=== PATIENT | female | born 1965 | race Caucasian/White ===

== ENCOUNTER → 2019-09-22 | Outpatient (CLI) | payer OTHER ==
--- NOTE | 2019-09-25 17:55 | RAD ---
DATE: 09/22/2019 EXAM: DIGITAL SCREEN BILAT W/CAD HISTORY: Routine screening COMPARISON: Prior exams are from more than 10 years ago and are not available. This study was interpreted with the benefit of Computerized Aided Detection (CAD). Breast Density: SCATTERED The breast parenchyma shows scattered fibroglandular densities. Breast parenchyma level B. FINDINGS: Asymmetry involving the left upper breast posteriorly is present approximately 6.6 cm from the nipple. Asymmetry involving the right central MLO view is also present. No suspicious calcifications or distortion. IMPRESSION: Indeterminate asymmetries BI-RADS CATEGORY: 0 INCOMPLETE: NEEDS ADDITIONAL IMAGING EVALUATION AND/OR PRIOR MAMMOGRAMS FOR COMPARISON. RECOMMENDED FOLLOW-UP: ADD ADDITIONAL IMAGING. Spot compression imaging of the right and left breast at the upper posterior aspect recommended. Ultrasound may be needed bilaterally. PQRS compliance statement: Patient information was entered into a reminder system with a target due date for the next mammogram. Mammography is a sensitive method for finding small breast cancers, but it does not detect them all and is not a substitute for careful clinical examination. A negative mammogram does not negate a clinically suspicious finding and should not result in delay in biopsying a clinically suspicious abnormality. "Our facility is accredited by the [employer] Mammography Program."
== END | disposition home or self-care (01) ==
LOC: MAMMO 15:21
PROVIDERS: ATTEND Physician Assistant
DX: Z12.31 Encounter for screening mammogram for malignant neoplasm of breast (principal)
CPT/HCPCS: 77067

== ENCOUNTER → 2019-10-10 | Outpatient (CLI) | payer OTHER ==
--- NOTE | 2019-10-10 17:40 | RAD ---
Examination: 1. Bilateral digital diagnostic mammogram 2. Bilateral Limited breast ultrasound. INDICATION: Screening recall from [facility] for bilateral breast asymmetries. COMPARISON: Bilateral screening mammogram of September 22, 2019. TECHNIQUE: CC and MLO views of both breasts were obtained with 3-D technique and full-field ML views were obtained with 2-D technique. Thereafter, targeted ultrasound of both breasts in the upper outer quadrants was performed spanning the 9 to 12:00 position on the right and the 10:30 to 3:00 position on the left. FINDINGS: Bilateral mammogram: Heterogeneously dense breast parenchyma. In the right breast, with the 3-D imaging performed at this visit, an asymmetry in the lateral middle third right breast was observed with questionable associated architectural distortion (image 27 of 50 on the CC tomographic series). More centrally in the area of screening recall, no persistent mammographic abnormality was appreciated. In the left breast, the 3-D tomographic images suggested a possible asymmetry in the lateral posterior left breast (image 30 of 52 on the CC tomographic series) that likely correlates with the asymmetry recalled from screening, at the approximate 2:00 position 7 cm from the nipple. Targeted ultrasound of the right breast showed an ovoid hypoechoic mass with posterior acoustic enhancement at the 9:30 o'clock position 8 cm from the nipple measuring 7 x 3 mm with thin internal septations. No suspicious sonographic findings were observed. This likely correlates with the mammographic finding pursued for additional imaging and is currently favored to represent a probable benign cluster of cysts. The questioned distortion could reflect prominent Vidal's ligaments near the edge of the patient's fibroglandular envelope. Six-month follow-up right diagnostic mammogram recommended for this finding. Targeted ultrasound of the left breast revealed a round hypoechoic solid mass with somewhat indistinct margins at the left 2:00 position 8 cm from the nipple. It is 3.5 mm in diameter. It is mildly suspicious (BI-RADS 4A). Ultrasound-guided core needle biopsy is recommended. Nodularity in the upper inner quadrant left breast was also seen that on targeted ultrasound revealed a 7 mm cluster of microcysts at the 10:30 o'clock position 5 cm from the nipple. IMPRESSION: 1. Suspicious round 3.5 mm mass in the left breast at the approximate 2:00 position 8 cm from the nipple. Ultrasound-guided core biopsy of this finding in the left breast is recommended. 2. Probably benign cluster of microcysts in the lateral posterior right breast. Right 6 month follow-up diagnostic mammogram of this finding is recommended. BI-RADS Category 4 Findings suspicious for malignancy Biopsy recommended Electronically signed by: Connor Blanchard MD (10/10/2019 5:37 PM) [facility]
== END | disposition home or self-care (01) ==
LOC: MAMMO 13:50
PROVIDERS: ATTEND Physician Assistant
DX: N63.11 Unspecified lump in the right breast, upper outer quadrant (principal); R92.2 Inconclusive mammogram
CPT/HCPCS: 76641; 77066; G0279; 77062